=== PATIENT | female | born 1960 | race African-American/Black ===

== ENCOUNTER 2017-03-06 14:19 | Outpatient (CLI) | payer BC ==
--- NOTE | 2017-03-06 15:31 | Mammography Report ---
Bilateral mammogram: Compared to 02/28/16. CAD study utilized. Findings: Bilateral stable breast implants. Benign calcification left breast. Predominance adipose tissue bilaterally. Normal axilla. Impression: Benign findings. Annual followup recommended. BI-RADS CATEGORY: 2 = Benign ACR BI-RADS MAMMOGRAPHIC CODES: 0 = Needs additional imaging evaluation; 1 = Negative; 2 = Benign; 3 = Probably benign; 4 = Suspicious; 5 = Malignant; 6 = Known biopsy-proven malignancy COMMENT: 1. Dense breast tissue, i.e., adenosis, fibrocystic changes, etc., may obscure an underlying neoplasm. 2. Approximately 10% of cancers are not detected with mammography. 3. A negative mammography report should not delay biopsy if a clinically suspicious mass is present. COMMENT: Patient follow-up letters are generated in [employer].
== END 2017-03-06 14:20 | disposition home or self-care (01) ==
LOC: MAMMO 14:19
PROVIDERS: ATTEND Nurse Practitioner Family
DX: Z12.31 Encounter for screening mammogram for malignant neoplasm of breast (principal); Z98.82 Breast implant status
CPT/HCPCS: 77067; G0202

== ENCOUNTER 2018-03-12 15:15 | Outpatient (CLI) | payer BC ==
--- NOTE | 2018-03-13 08:12 | Mammography Report ---
Bilateral mammogram: Compared to 03/06/17. CAD study utilized. Findings: Stable breast implants. No mass or microcalcification. Benign calcifications left breast. Normal axilla. Impression: Benign findings. Annual followup recommended. BI-RADS CATEGORY: 2 = Benign ACR BI-RADS MAMMOGRAPHIC CODES: 0 = Needs additional imaging evaluation; 1 = Negative; 2 = Benign; 3 = Probably benign; 4 = Suspicious; 5 = Malignant; 6 = Known biopsy-proven malignancy COMMENT: 1. Dense breast tissue, i.e., adenosis, fibrocystic changes, etc., may obscure an underlying neoplasm. 2. Approximately 10% of cancers are not detected with mammography. 3. A negative mammography report should not delay biopsy if a clinically suspicious mass is present. COMMENT: Patient follow-up letters are generated in [employer].
== END 2018-03-12 15:16 | disposition home or self-care (01) ==
LOC: MAMMO 15:15
PROVIDERS: ATTEND Family Medicine
DX: Z12.31 Encounter for screening mammogram for malignant neoplasm of breast (principal); K21.9 Gastro-esophageal reflux disease without esophagitis
CPT/HCPCS: 77067